=== PATIENT | male | born 1955 | race African-American/Black ===

== ENCOUNTER → 2017-03-05 | Outpatient (CLI) | payer MEDICARE, OTHER ==
[2015-08-21 15:05] VITALS: BP 125/60
[~2017-03-05] MED LIST: CINA30TA PO; CLOP75TA PO; LISI40TA PO; METO25TA9 PO; SEVE800T9 PO
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
== END | disposition home or self-care (01) ==
LOC: MRI 10:20
PROVIDERS: ATTEND Family Medicine
DX: M51.16 Intervertebral disc disorders with radiculopathy, lumbar region (principal)
CPT/HCPCS: 72148

== ENCOUNTER → 2017-03-19 | Outpatient (CLI) | payer OTHER ==
[2015-08-21 15:05] VITALS: BP 125/60
[~2017-03-19] MED LIST changes: +ALLO100T PO; +HYDR-2672 PO
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
== END | disposition home or self-care (01) ==
LOC: PNCL 08:26
PROVIDERS: ATTEND Anesthesiology
DX: M79.604 Pain in right leg (principal)
CPT/HCPCS: G0463